=== PATIENT | female | born 1975 | race African-American/Black ===

== ENCOUNTER 2016-06-01 14:41 | Emergency (ER) | payer MEDICAID, OTHER ==
[~2016-06-01] VITALS: Ht 172.7 cm; Wt 110.2 kg
[~2016-06-01 14:41] MED LIST: ALBUTEROL SULF8.5 GM INH; ANTIVERT25 MG ORAL; AZITHROMYCIN250 MG ORAL; CYCLOBENZAPRINE10 MG ORAL; GLUCOTROL10 MG ORAL; IBUPROFEN600 MG ORAL; IBUPROFEN800 MG ORAL; MACROBID100 MG ORAL; METFORMIN HCL1000 M1 ORAL; NORCO 5-325 TA1 EACH ORAL; PREDNISONE20 MG ORAL; PROMETHAZINE-D118 ML ORAL; ROBAXIN-750750 MG PO
[2016-06-01] MEDS ORDERED: Methocarbamol 750mg tab ORAL ONE (15:45)
[2016-06-01] MEDS ORDERED: Ketorolac 30mg Inj IM ONE (15:45)
[2016-06-01] MEDS ORDERED: IBUPROFEN600 MG ORAL (16:10)
[2016-06-01] MEDS ORDERED: ROBAXIN-750750 MG PO (16:10)
[2016-06-01 17:02] VITALS: BP 113/72
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
== END 2016-06-01 17:04 | disposition home or self-care (01) ==
LOC: EMR 15:53
DX: S16.1XXA Strain of muscle, fascia and tendon at neck level, initial encounter (principal); V43.52XA Car driver injured in collision with other type car in traffic accident, initial encounter; Y92.410 Unspecified street and highway as the place of occurrence of the external cause; E11.9 Type 2 diabetes mellitus without complications; J45.909 Unspecified asthma, uncomplicated; R51 Headache
CPT/HCPCS: 96372; 99284; J1885

== ENCOUNTER 2016-07-18 09:36 | Emergency (ER) | payer MEDICAID, OTHER ==
[~2016-07-18] VITALS: Ht 172.7 cm; Wt 108.9 kg
[2016-07-18 09:55] VITALS: BP 121/74
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
[2016-07-18] MEDS ORDERED: traMADol 50mg tab ORAL ONE (10:30)
--- NOTE | 2016-07-18 11:26 | Diagnostic Imaging Report ---
Indication: Back pain Comparison: None Findings: 3 views of the lumbar spine were obtained. No acute fracture or malalignment is identified. Vertebral body heights and disk spaces are well maintained. Posterior elements are unremarkable. Impression: No acute findings.
[2016-07-18] MEDS ORDERED: TRAMADOL HCL50 MG ORAL (12:15)
[2016-07-18] MEDS ORDERED: ROBAXIN500 MG PO (12:15)
[2016-07-18] MEDS ORDERED: IBUPROFEN600 MG ORAL (12:15)
[2016-07-18 12:30] VITALS: BP 105/71
[2016-07-18 12:35] VITALS: BP 105/71
== END 2016-07-18 12:35 | disposition home or self-care (01) ==
LOC: EMR 10:12
DX: S39.012D Strain of muscle, fascia and tendon of lower back, subsequent encounter (principal); V89.2XXD Person injured in unspecified motor-vehicle accident, traffic, subsequent encounter; E11.9 Type 2 diabetes mellitus without complications; J45.909 Unspecified asthma, uncomplicated
CPT/HCPCS: 72020; 99284